=== PATIENT | male | born 1960 | race Caucasian/White ===

== ENCOUNTER 2016-10-23 10:33 | Emergency (ER) | payer BC ==
[~2016-10-23] VITALS: Ht 172.7 cm; Wt 107.5 kg
[2016-10-23] MEDS ORDERED: CRESTOR10 MG PO (10:59)
[2016-10-23] MEDS ORDERED: NAPROXEN500 MG PO (11:31)
[2016-10-23 12:13] VITALS: BP 125/88
== END 2016-10-23 12:13 | disposition home or self-care (01) ==
LOC: EME 10:33
PROC: 2W3DX1Z Immobilization of Left Lower Arm using Splint (ICD-10-PCS; principal; 2016-10-23)
DX: S63.502A Unspecified sprain of left wrist, initial encounter (principal); W00.9XXA Unspecified fall due to ice and snow, initial encounter; Y93.01 Activity, walking, marching and hiking
CPT/HCPCS: 73110; 99281; 99283